=== PATIENT | male | born 1980 | race Caucasian/White ===

== ENCOUNTER 2017-10-17 16:28 | Inpatient (IN) | payer MEDICAID ==
[2017-10-17] MEDS ORDERED: KETOROLAC 15 MG/1 ML SDV IVP ONE (17:03)
[2017-10-17] MEDS ORDERED: ASPIRIN 81 MG CHEWABLE TAB PO ONE (17:04)
--- NOTE | 2017-10-17 17:08 | EDPHY ---
H & P Time Seen by Provider: 10/17/17 16:54 HPI/ROS: This patient reports atraumatic onset of left thigh pain yesterday. He was going up and down a ladder but denies any injuries and today the pain spread to the left calf in addition. He describes this is quite intense pain 8/10 intensity achy in nature worse with walking. He tried Tylenol shortly prior to arrival without much relief denies any other exacerbating factors. He has not had this problem before. ROS: No fevers or chills. HEENT: No complaints line pulmonary: No shortness of breath or cough. Cardiovascular: No lightheadedness. No chest pain. GI: Chronic loose stools currently being worked up for inflammatory bowel conditions by Gastroenterology Integumentary: Chronic psoriasis no recent changes in severity 7 point ROS is otherwise negative. Past Medical/Surgical History: Psoriasis Hypertension Possible inflammatory bowel condition Family history: No known history of DVT or PE Social History: Patient also drinks daily-he admits 6 beers a day. No drug use. He is with children Smoking Status: Current every day smoker (Smokes a pack a day) Physical Exam: Physical Exam Vital signs are normal. General: No acute distress Eyes: Pupils equal and react to light. Extraocular motions are intact. HEENT: Atraumatic and normal Lungs: Clear to auscultation bilaterally. No respiratory distress. Cardiac: Regular rate and rhythm with no murmur gallop rub. Maintains 2+ dorsalis pedis and posterior develops pulses bilaterally. Extremities: Notable for a left leg swelling and tenderness with positive Homans. Left thigh is also tender. Skin: No rash or pallor. Neuro: Alert and oriented x3 with no sensorimotor deficits in the affected extremity. Psychiatric: Mood and affect are normal. Initial differential diagnosis: Left lower extremity DVT, calf strain/thigh muscle strain, dependent edema Constitutional: Initial Vital Signs Temperature (C) 36.6 C 10/17/17 16:33 Heart Rate 102 H 10/17/17 16:33 Respiratory Rate 18 10/17/17 16:33 Blood Pressure 148/118 H 10/17/17 16:33 O2 Sat (%) 96 10/17/17 16:33 O2 Delivery Mode Room Air Allergies/Adverse Reactions: No Known Allergies Allergy (Verified 10/17/17 16:37) Home Medications: Medication Instructions Recorded Prednisone 10/17/17 MDM/Departure - MDM Diagnostics: Doppler study results as listed below-reviewed with radiologist CBC reveals mild leukocytosis, chemistries are normal, coags normal Imaging Results: Imaging Impressions Extremity Venous Study 10/17/17 17:00 Impression: Positive extensive deep venous thrombosis involving the entire left leg from the common femoral vein through the femoral veins and calf veins. Findings and recommendations discussed with Emergency Department physician, Josemanuel Gonzalez at 1803 hour, 10/17/2017. Final report concurs with initial preliminary interpretation. Imaging: Discussed imaging studies w/ callisthenics instructor Radiologist Medications Given: Discontinued Medications Aspirin (Aspirin) 324 mg PO EDNOW ONE Stop: 10/17/17 17:05 Last Admin: 10/17/17 17:14 Dose: 324 mg Enoxaparin Sodium (Lovenox) 100 mg SC EDNOW ONE Stop: 10/17/17 18:16 Last Admin: 10/17/17 18:18 Dose: 100 mg Ketorolac Tromethamine (Toradol) 15 mg IVP EDNOW ONE Stop: 10/17/17 17:04 Last Admin: 10/17/17 17:15 Dose: 15 mg Lorazepam (Ativan Injection) 1 mg IVP EDNOW ONE Stop: 10/17/17 18:17 Last Admin: 10/17/17 18:32 Dose: 1 mg Morphine Sulfate (Morphine) 4 mg IVP EDNOW ONE Stop: 10/17/17 17:04 Last Admin: 10/17/17 17:14 Dose: 4 mg ED Course/Re-evaluation: IV Toradol and morphine for pain control taking the pain from 8/10 to 5/10. Aspirin p.o. I discussed the Doppler ultrasound results with Dr. Parks - proximal DVT femoral vein extending all the way down to popliteal Lovenox administered 1 milligram/kilogram subcu Discussion: Given the proximal DVT with significant pain and swelling in a young patient. I think this patient warrants potential interventional radiology procedure given the proximal and extensive nature of the DVT, the severity of pain in the associated swelling. No clinical signs or symptoms of associated PE. He has no shortness of breath no pleuritic pain etc. I spoke with Dr. Lucita Lawson, interventional radiologist on-call who recommends admission to hospitalist to facilitate with procedure and 2 accomplish pain control until procedures done. I counseled patient and his regarding this and they are agreeable to plan for admission and interventional Radiology treatment. Patient is however quite anxious treated with Ativan 1 mg IV - Depart Disposition: [facility] In[facility] Acute Clinical Impression: DVT of proximal lower limb Qualifiers: Chronicity: acute Laterality: left Qualified Code(s): I82.4Y2 - Acute embolism and thrombosis of unspecified deep veins of left proximal lower extremity Condition: Good
[2017-10-17 17:25] LABS: PLATELET COUNT 191 10^3/uL (150-400)
[2017-10-17] MEDS ORDERED: ENOXAPARIN 100 MG/ML SYR SC ONE (18:15)
[2017-10-17] MEDS ORDERED: LORazepam 2 MG/ML INJ IVP ONE (18:16)
[2017-10-17 18:24] LABS: PROTIME(PATIENT) 13.1 SEC (12.0-15.0)
[2017-10-17] MEDS ORDERED: LORazepam 2 MG/ML INJ ONE (18:29)
[2017-10-17] MEDS ORDERED: ONDANSETRON DISINTEGRATING 4 MG TAB PO PRN (21:16)
[2017-10-17] MEDS ORDERED: ONDANSETRON 4 MG/2 ML VIAL IVP PRN (21:16)
[2017-10-17] MEDS ORDERED: ACETAMINOPHEN 325 MG TAB PO PRN (21:16)
[2017-10-17] MEDS ORDERED: LORazepam 2 MG/ML INJ IVP PRN ×2 (21:16→21:23)
[2017-10-17] MEDS ORDERED: HEPARIN 10,000 UNIT/10 ML MDV (1,000 UNIT/ML) IVP PRN (21:18)
[2017-10-17] MEDS ORDERED: HEPARIN/DEXTROSE 500 ML IV SCH (21:30)
[2017-10-17] MEDS: THIAMINE HCL 500 MG in NS 100 ML IV SCH (21:44)
--- NOTE | 2017-10-17 21:56 | GHP ---
[f rep st] HISTORY AND PHYSICAL DATE OF ADMISSION: 10/17/2017 CHIEF COMPLAINT: Left leg pain. HISTORY OF PRESENT ILLNESS: A 37-year-old man, who developed pain in his left leg 2 days ago. Noticed that it was slightly swollen. Hurts with movement. He saw his GI doctor today, who recommended that he present to the ER because of this. He has recently been worked up for bloody stools with a colonoscopy. He has been tentatively diagnosed with ulcerative colitis or flares. He is on prednisone. He is having bloody bowel movements, which triggered the initial colonoscopy about 6 weeks ago, and then recurred about 1 week ago. In the ED, he was identified with a large DVT and was sent to [facility] tentatively for tPA lysis. I do not believe that the ED physician was aware of his history of hematochezia, which I think represents a contraindication to lysis. I have let him and his know this, and they are both somewhat frustrated as they would have preferred to go to [facility]. PAST MEDICAL/SURGICAL HISTORY: 1. Ulcerative colitis versus Crohn's. 2. Psoriasis. 3. GERD. MEDICATIONS: Please see medication reconciliation. ALLERGIES: None. FAMILY HISTORY: No DVT. SOCIAL HISTORY: He drinks about 6 beers a day. He is accompanied by his . He has 3 kids. REVIEW OF SYSTEMS: A 10-point review of systems is conducted and is negative except per HPI. PHYSICAL EXAMINATION: VITAL SIGNS: Blood pressure is 161/104, heart rate 110, respiration rate 20, saturating 95% on room air, temperature 36.9. GENERAL: The patient is a pleasant man, who appears slightly anxious. HEENT: Shows him to be normocephalic, atraumatic. CARDIOVASCULAR: Shows regular rate and rhythm. No murmurs, rubs, or gallops. PULMONARY: Shows lungs clear to auscultation bilaterally. ABDOMEN: Soft, nontender, nondistended. SKIN: Shows plaque psoriasis. : Shows no Pratt. NEUROLOGIC: Shows him to be alert and oriented x3. He is moving all extremities. PSYCHIATRIC: Shows a normal mood and affect. EXTREMITIES: Shows the left lower extremity to be very edematous, very tender to palpation. It is warm, but not red. LABORATORY DATA: White count is 13, INR is 1.0, glucose is 103. DATA: 1. I discussed this with Dr. Gonzalez. Admit to med/surg. 2. I reviewed his extremity venous study. This shows positive extensive DVT involving the entire left leg in the common femoral vein through the common veins and the calf veins. IMPRESSION AND PLAN: 1. Extensive deep venous thrombosis: Received Lovenox at [facility]. Initial plan was for tPA lysis. I am very concerned given his hematochezia that this would be contraindicated. My recommendation is for anticoagulation alone. I have passed this on to nursing and will pass this on to covering physician tomorrow. Will attempt to let Dr. Davila know this as well. Will transition him to heparin drip tomorrow. Consider an oral anticoagulant versus Lovenox bridge to warfarin moving forward. 2. Ulcerative colitis versus Crohn's: Treated at [facility]. He is on prednisone. I will attempt to obtain his colonoscopy, which may help further guide treatment decisions. 3. Psoriasis: On prednisone. 4. His GI doctor is Marilin Friedman with of [facility]. /[id number]/MODL MTDD
[2017-10-17 22:22] LABS: PLATELET COUNT 184 10^3/uL (150-400)
[2017-10-17] MEDS: BEER 1 EACH EA PO SCH (22:37)
[2017-10-17 22:40] LABS: INR 1.02 (0.83-1.16); PROTIME(PATIENT) 13.6 SEC (12.0-15.0)
[2017-10-18] MEDS: OXYCODONE/APAP 5/325 TAB PO PRN ×4 (04:34→17:48)
[2017-10-18 05:10] LABS: PLATELET COUNT 178 10^3/uL (150-400)
[2017-10-18] MEDS ORDERED: HEPARIN/DEXTROSE 500 ML IV SCH (06:00)
[2017-10-18] MEDS ORDERED: HEPARIN 10,000 UNIT/10 ML MDV (1,000 UNIT/ML) IVP PRN (06:00)
[2017-10-18] MEDS: THIAMINE HCL 500 MG in NS 100 ML IV SCH (08:42)
[2017-10-18] MEDS ORDERED: predniSONE 20 MG TAB PO SCH (09:00)
[2017-10-18] MEDS ORDERED: PANTOPRAZOLE SODIUM 40 MG TAB PO SCH (09:00)
[2017-10-18] MEDS ORDERED: NICOTINE 21 MG/24 HR PATCH TD SCH (10:45)
[2017-10-18 14:10] VITALS: BP 142/101; PULSE 90; RESP 18; TEMP 98.1; O2SAT 94
--- NOTE | 2017-10-18 16:54 | HOSPPROG ---
Hospitalist Progress Note Assessment/Plan: 37-year-old male admitted with bloody stools and found to have a left leg DVT with extensive clot from the femoral vein to the peroneal vein on the left. TPA was considered and declined because of the history of bloody stools. He is currently on heparin and will be transitioned to Lovenox and ultimately Coumadin. -acute left leg DVT currently on heparin anticoagulation on transitioned to Coumadin. No complaints of chest pain or shortness of breath suggestive of a pulmonary embolus -guaiac-positive stools currently under evaluation and either diagnosis of ulcerative colitis or Crohn's disease. Biopsies are pending -GERD: Will place on PPI medication -tobacco addiction: Nicotine patch -psoriasis for the last 18 years requiring prednisone therapy. We will continue his home prednisone Plan: Patient will require an additional 24 hr care of continuous heparin anticoagulation. We will start Lovenox bridging and Coumadin has been started. The additional 24 hr of care is necessary to monitor his stool output and maintain a stable hemoglobin wound relative to his GI bleeding. Subjective: Reports he is still having some bloody stool. The stool is described with as stool with blood not melena and not a dark or tarry stool. He has some cramping abdominal pain denies chest pain shortness of breath. Objective: Vital Signs Temp Pulse Resp BP Pulse Ox 36.7 C 90 18 142/101 H 94 10/18/17 14:10 10/18/17 14:10 10/18/17 14:10 10/18/17 14:10 10/18/17 14:10 PT 13.6 SEC (12.0-15.0) 10/17/17 22:00 INR 1.02 (0.83-1.16) 10/17/17 22:00 - Time Spent With Patient Time Spent with Patient: greater than 35 minutes Time Spent with Patient: Greater than 35 minutes spent on this patients care, greater than 50% of time spent counseling, educating, and coordinating care regarding the above mentioned plan. - Pending Discharge Pending Discharge Within 24 Hours: Yes Pending Discharge Date: 10/19/17 Pending Discharge Time: 11:00 - Physical Exam Constitutional: no apparent distress Eyes: PERRL, anicteric sclera Ears, Nose, Mouth, Throat: moist mucous membranes, hearing normal Cardiovascular: regular rate and rhythym, no murmur, rub, or gallop Respiratory: no respiratory distress, no rales or rhonchi, clear to auscultation , other (No splinting or complaints of chest pain) Gastrointestinal: normoactive bowel sounds, soft, non-tender abdomen, no palpable masses Genitourinary: no bladder fullness Skin: other (Left leg is swollen from the thigh all the way to the foot just slightly. There is a feeling of slight erythema but no skin redness. There is no definitive palpable cord no Homans sign is negative.) Musculoskeletal: full muscle strength Neurologic: AAOx3, CN II-XII Intact Psychiatric: interacting appropriately ICD10 Worksheet Patient Problems: Problems Problem Status Onset DVT of proximal lower limb Acute
--- NOTE | 2017-10-18 17:07 | PDMN ---
Medical Necessity Medical necessity: C/M review: est > 2 MN for eval and TX of acute and persistent left lower extremity DVT with extensive clot from the femoral to the peroneal vein, guiac positive stools - biopsies pending, requiring ongoing IV Heparin infusion with plan to transition to subcutaneous Lovenox and oral Coumadin, comorbid GERD, tobacco addisition, psoriasis requiring prednisone therapy per 09/23/2018 Hospitalist progress note.
[2017-10-18] MEDS ORDERED: ENOXAPARIN 100 MG/ML SYR SC ONE (17:44)
[2017-10-18] MEDS: BEER 1 EACH EA PO SCH (18:03)
--- NOTE | 2017-10-18 18:13 | SOAPPROG ---
REINIER Progress Note Assessment/Plan: Assessment: Plan: 10/18/17 16:27 See dictated consult for details Objective: Vital Signs Temp Pulse Resp BP Pulse Ox 36.7 C 90 18 142/101 H 94 10/18/17 14:10 10/18/17 14:10 10/18/17 14:10 10/18/17 14:10 10/18/17 14:10 PT 13.6 SEC (12.0-15.0) 10/17/17 22:00 INR 1.02 (0.83-1.16) 10/17/17 22:00 ICD10 Worksheet Patient Problems: Problems Problem Status Onset DVT of proximal lower limb Acute
--- NOTE | 2017-10-19 05:11 | GDS ---
[f rep st] DISCHARGE SUMMARY KNOWN ACUTE DIAGNOSES: 1. Left leg deep vein thrombosis without signs of a pulmonary embolus. 2. Ulcerative colitis versus Crohn disease with gastrointestinal bleeding. 3. Psoriasis, on prednisone therapy. 4. Gastroesophageal reflux disease. CONSULTATIONS: None. PROCEDURES: Extremity venous study showed extensive deep venous thrombosis involving the entire left leg from the common femoral vein through the femoral veins and the calf veins. HOSPITAL COURSE: This is a 37-year-old male, who was under evaluation by GI for bloody stools. He h as been noted to have an acute colitis, either ulcerative colitis or Crohn disease. He saw his GI do ctor on the day of admission who noted his left leg was swollen, and he was sent to the emergency dep artment for further evaluation. An ultrasound confirmed a deep venous thrombosis through his entire left leg. Consideration was given to using thrombolytics, yet because of the history of GI bleeding, this was contraindicated. He was placed on heparin, which reached therapeutic levels. He tolerated this well. He had some pain in the left leg requiring pain medication. This gentleman has elected to return home on Lovenox bridging and Coumadin for outpatient care and ultimate followup. DISCHARGE MEDICATIONS: New medications: 1. Lovenox 100 mg subcu b.i.d., #10. 2. Coumadin 5 mg p.o. daily. His continued medications will be prednisone 40 mg per day for psoriasis, Prilosec 20 mg daily. PLAN: This gentleman will follow up in 3 days at the [facility] in [place]. He f ollows up with a physician named Lara. He did not know the last name. A prescription has been given for his INR at that time. He has been cautioned if he develops chest pain, shortness of breath, or increased swelling in the le g, he should return to the emergency department. TIME: This discharge required 45 minutes, greater than 50% to debt management counselor, coordinate care, and explain the use of Lovenox to him and his . /[id number]/MODL
--- NOTE | 2017-10-19 09:42 | GCON ---
[f rep st] CONSULTATION DATE OF CONSULTATION: 10/18/2017 REFERRING PHYSICIAN: Pavel Obrien MD REASON FOR CONSULTATION: Inflammatory bowel disease. CHIEF COMPLAINT: Left leg pain. HISTORY OF PRESENT ILLNESS: The patient is a 37-year-old male who started to experience bloody diarrhea starting in approximately November of last year. He has had multiple bloody bowel movements each day as well as nocturnal bowel movements. Due to his complaints, he underwent al colonoscopic evaluation on , where he was found to have diffuse area of moderately erythematous mucosa in the distal colon, as well as several scattered areas of colitis throughout the colon. Biopsies were taken and he was found to have active colitis throughout his colon. He was started on prednisone with good relief of his symptoms. Approximately 4 days ago, he started to experience pain in his left lower leg. This pain is sharp and has became more progressive. He has noted difficulty of walking, with no history of leg trauma. He had an ultrasound done, which does reveal a significant DVT. He is currently going to the bathroom approximately 1-3 times each day. He is having some blood in these bowel movements. He denies any exacerbating or alleviating factors to his symptoms. Denies any significant abdominal pain. He was recently started on prednisone with good relief of this symptoms. I am being asked by Dr. Obrien to evaluate [place] [facility] in consultation regarding his inflammatory bowel disease. PAST MEDICAL HISTORY: 1. Indeterminate colitis. 2. Dyslipidemia. 3. Hypertension. 4. Tobacco use. 5. DVT. 6. Psoriasis. PAST SURGICAL HISTORY: None. ALLERGIES: NKDA. MEDICATIONS: Prednisone 40 mg, just started Lialda. SOCIAL HISTORY: Caffeine. Smokes 1 pack a day. Drinks 5 or 6 beers a day. Three children. FAMILY HISTORY: CML, renal cancer. REVIEW OF SYSTEMS: A 12-point comprehensive review of systems was asked. Pertinent positives, pertinent negatives as per HPI. PHYSICAL EXAMINATION: VITAL SIGNS: Blood pressure 140/101, pulse 95, respirations 20, temperature 36.6. GENERAL: Awake, alert, oriented x3. No distress. HEENT: Anicteric sclerae. Moist mucosa. NECK: No JVD. CARDIOVASCULAR: Regular rate and rhythm. Positive S1, S2. No murmurs or gallops appreciated. LUNGS: Clear to auscultation bilaterally. No wheezes, rales or rhonchi. ABDOMEN: Soft, nontender, nondistended. Positive bowel sounds. No guarding or rebound. EXTREMITIES: No clubbing, cyanosis, edema. NEUROLOGIC: 2 through 12 grossly intact. PSYCH: Normal affect. SKIN: Positive psoriasis. LABORATORY DATA: WBC 12.88, hemoglobin 14.2, hematocrit 41.4, platelets 178. INR 1.02. Sodium 140, potassium 4.4, chloride 106, bicarb 26, BUN 16, creatinine 0.9, AST 26, ALT 72. ASSESSMENT AND PLAN: 1. Colitis-suspect Crohn's? Is following up with [facility] as an outpatient. At this time, recommend prednisone 40 mg. May need to be treated with biologics as an outpatient? Recommend 5-ASA compounds. If symptoms dont improve, would recommend to check stool studies as well. 2. History of psoriasis. 3. History of deep vein thrombosis-okay for anticoagulation. His GI bleeding is very minimal and is low risk for significant bleed. Thank you very much for this consultation. /[id number]/MODL MTDD
--- NOTE | 2017-10-19 18:00 | ASDISCHSUM ---
Discharge Information Plan Status:Home with No Needs Medically Cleared to Leave: Discharge Date:10/18/2017 06:32 PM CM D/C Disposition:Home, Routine, Self-Care ADT D/C Disposition:Home, Routine, Self-Care Projected Discharge Date:10/18/2017 06:32 PM Transportation at D/C:Family Discharge Delay Reason: Follow-Up Date:10/18/2017 06:32 PM Discharge Slot: Final Diagnosis: Placement Information Patient Contact Information Contact Name:KATJA Relationship: Address:[address] Work Phone: City:[place] Alternate Phone: [facility]/Zip Code:[place] [address] Email: Financial Information Financial Class: Primary Plan Desc:[employer]ICA[employer] [address] ADMIN[employer]ATOR Primary Plan Number:[id number] Secondary Plan Desc: Secondary Plan Number: Assessment Information Intervention Information
== END 2017-10-18 18:32 | disposition home or self-care (01) | DRG 300 ==
LOC: CED 16:28 → CEDHOLD 18:24 → F3E 19:59 → OBSVTOIN 10-18 15:35
PROVIDERS: ADMIT Student in an Organized Health Care Education/Training Program; ATTEND Internal Medicine Pulmonary Disease
DX: I82.412 Acute embolism and thrombosis of left femoral vein (principal); I82.432 Acute embolism and thrombosis of left popliteal vein; K51.918 Ulcerative colitis, unspecified with other complication; K50.918 Crohn's disease, unspecified, with other complication; K92.2 Gastrointestinal hemorrhage, unspecified; I10 Essential (primary) hypertension; L40.9 Psoriasis, unspecified; K21.9 Gastro-esophageal reflux disease without esophagitis; F17.210 Nicotine dependence, cigarettes, uncomplicated; E78.5 Hyperlipidemia, unspecified; Z79.52 Long term (current) use of systemic steroids
CPT/HCPCS: 80053-PO; 82607-90; 85025-PO; 85520-90; 85610-PO; 85730-PO; 93971-PO; 96374; G0378; J1644; J1650; J1885; J2060; J3411; J7512

== ENCOUNTER → 2017-12-04 | Outpatient (CLI) | payer MEDICAID ==
[~2017-12-04] MED LIST: GADOBUTROL 10 ML VIAL IVP ONE; GLUCAGON HCL 0.3 MG in SYRINGE 0.3 ML IVP ONE
== END ==
LOC: FIMAGING 09:13
PROVIDERS: ATTEND Physician Assistant
DX: R16.0 Hepatomegaly, not elsewhere classified (principal); K76.0 Fatty (change of) liver, not elsewhere classified
CPT/HCPCS: A9585; J1610